=== PATIENT | female | born 1990 | race Caucasian/White ===

== ENCOUNTER 2019-07-20 07:57 | Emergency (ER) | payer SELFPAY ==
[2019-07-20] MEDS ORDERED: HYDROCODONE/ACETAMINOPHEN 5-325 MG TABLET PO ONE (08:43)
[2019-07-20] MEDS ORDERED: IBUPROFEN 800 MG TABLET PO ONE (08:43)
[2019-07-20] MEDS ORDERED: PREDNISONE 20 MG TABLET PO ONE (08:43)
--- NOTE | 2019-07-20 08:47 | ER Document Report ---
ED ENT - General Chief Complaint: Sore Throat Stated Complaint: SORE THROAT, EAR PAIN Time Seen by Provider: 07/20/19 08:16 Mode of Arrival: Ambulatory Information source: Patient Notes: This 29-year-old female patient comes emergency room complaining of severe pain in her left throat going up into the ear that started yesterday. She woke up this morning and it was much worse. It is very painful to try to swallow saliva. There is no history of fever, nasal congestion, cough, nausea or vomiting. TRAVEL OUTSIDE OF THE [place] IN LAST 30 DAYS: No - Related Data Allergies/Adverse Reactions: No Known Allergies Allergy (Verified 10/11/14 13:31) Past Medical History - General Information source: Patient - Social History Smoking Status: Current Every Day Smoker Cigarette use (# per day): Yes - 1/2 pack/day Chew tobacco use (# tins/day): No Smoking Education Provided: No Frequency of alcohol use: None Drug Abuse: None Occupation: Unemployed Family History: Reviewed & Not Pertinent Patient has suicidal ideation: No Patient has homicidal ideation: No - Medical History Medical History: Negative Past Surgical History: Reports: Hx Appendectomy - Immunizations Hx Diphtheria, Pertussis, Tetanus Vaccination: Yes Review of Systems - Review of Systems Constitutional: No symptoms reported EENT: See HPI Cardiovascular: No symptoms reported Respiratory: No symptoms reported Gastrointestinal: No symptoms reported Genitourinary: No symptoms reported Musculoskeletal: No symptoms reported Skin: No symptoms reported Hematologic/Lymphatic: No symptoms reported Neurological/Psychological: No symptoms reported Physical Exam - Vital signs Vitals: Temp Pulse Resp BP Pulse Ox 98.6 F 97 18 111/69 97 07/20/19 08:01 07/20/19 08:01 07/20/19 08:01 07/20/19 08:01 07/20/19 08:01 - General General appearance: Appears well, Alert In distress: None - HEENT Head: Normocephalic, Atraumatic Eyes: Normal Pupils: PERRL Nasal: Normal Pharynx: Erythema - There is some erythema to the posterior pharyngeal pillar region that appears viral.. No: Exudate, Tonsillar hypertrophy, Uvular edema Neck: Lymphadenopathy - There is some slightly tender palpable left anterior cervical nodes, Supple - Respiratory Respiratory status: No respiratory distress Breath sounds: Normal - Cardiovascular Rhythm: Regular Heart sounds: Normal auscultation Murmur: No - Abdominal Inspection: Normal Tenderness: Nontender - Back Back: Normal - Extremities General upper extremity: Normal inspection General lower extremity: Normal inspection - Neurological Neuro grossly intact: Yes - Psychological Associated symptoms: Normal affect, Normal mood - Skin Skin Temperature: Warm Skin Moisture: Dry Skin Color: Normal Course - Re-evaluation Re-evalutation: 07/20/19 09:29 Rapid strep is negative - Vital Signs Vital signs: Temp Pulse Resp BP Pulse Ox 98.6 F 97 18 111/69 97 07/20/19 08:01 07/20/19 08:01 07/20/19 08:01 07/20/19 08:01 07/20/19 08:01 Discharge - Discharge Clinical Impression: Viral syndrome Pharyngitis Qualifiers: Pharyngitis/tonsillitis etiology: unspecified etiology Qualified Code(s): J02.9 - Acute pharyngitis, unspecified Condition: Stable Disposition: HOME, SELF-CARE Additional Instructions: Viral Syndrome The physician has diagnosed a viral infection. Viruses not only cause "colds," but can cause many different symptoms including generalized aching, fever, headache, cough, diarrhea, nausea, vomiting, and fatigue. The treatment, for the most part, is simply relief of symptoms. This means that antibiotics are usually not given. Rest, fluids, pain medications and, occasionally, medication for the specific symptoms that are most bothersome will be prescribed. Use good handwashing to avoid passing the virus to others. Shared toys should be cleaned with disinfectant. Clean the toilets, sinks, and counter surfaces in bathrooms. Launder clothing in hot water. Contact the physician if you develop any new or unusual symptoms such as severe headache, stiff neck, high fever, chest pain, productive cough, or shortness of breath. You should be rechecked if you don't see marked improvement within seven to 10 days. Sore Throat Sore throats may be caused by viruses, bacteria, or fungi. Most are due to a virus, and must get better on their own. Bacterial sore throats, particularly those due to "strep," need treatment with antibiotics. If an antibiotic is prescribed, be sure to take the medication for a full 10 days. Failure to take the antibiotic can result in complications such as rheumatic fever. Sometimes, an injection of antibiotics is given instead of pills or liquid. This single "shot" is equal in effectiveness to the oral medication. To relieve symptoms, take acetaminophen for pain. Sip clear liquids frequently, or eat popsicles or ice chips. Anesthetic sprays or lozenges may help. Make sure the air in the room is not too dry. Avoid using decongestants or antihistamines. Call the doctor if there is no improvement in two days, or if you have difficulty breathing, increasing throat pain, high fever, rash, or frequent vomiting. Drink plenty of fluids and get plenty of rest. Take 2 extra strength Tylenol every 4 hours and Motrin 600 mg every 6 hours. Start taking the prednisone tomorrow, you have had today's dose here in the emergency room. Follow-up with a local primary care provider if not improving over the next few days. RETURN TO THE EMERGENCY ROOM IF ANY NEW OR WORSENING SYMPTOMS. Prescriptions: Prednisone [Deltasone 10 mg Tablet] 10 mg PO ASDIR PRN #15 tablet PRN Reason:
[2019-07-20] MEDS ORDERED: HYDROCODONE/ACETAMINOPHEN 5-325 MG (6 TAB/ER DISP) PO PRN (09:35)
[2019-07-20 09:55] VITALS: BP 115/72
== END 2019-07-20 09:43 | disposition home or self-care (01) ==
LOC: ER 07:57
DX: B34.9 Viral infection, unspecified (principal); J02.9 Acute pharyngitis, unspecified; F17.210 Nicotine dependence, cigarettes, uncomplicated
CPT/HCPCS: 99282; 87070; 87880; 87077; J7512

== ENCOUNTER 2020-02-26 20:53 | Emergency (ER) | payer SELFPAY ==
--- NOTE | 2020-02-26 23:16 | RADIOLOGY REPORT (SQ) ---
EXAM DESCRIPTION: XR FOOT 3 OR MORE VIEWS, XR ANKLE 3 OR MORE VIEWS COMPLETED DATE/TME: 02/26/2020 22:39 CLINICAL HISTORY: fall COMPARISON: None FINDINGS: Three x-ray views of the left ankle and foot were submitted. There is an acute nondisplaced transverse fracture at the base of the fifth metatarsal bone, Harrison fracture. Bone mineralization is within normal limits. There is no radiopaque foreign body material. IMPRESSION: Acute nondisplaced fracture at the base of the fifth metatarsal bone.
[2020-02-26] MEDS ORDERED: HYDROCODONE/ACETAMINOPHEN 5-325 MG TABLET PO ONE (23:57)
--- NOTE | 2020-02-26 23:59 | ER Document Report ---
ED Extremity Problem, Lower - General Chief Complaint: Foot Injury Stated Complaint: POSSIBLE BROKEN LEFT FOOT Mode of Arrival: Wheelchair Information source: Patient Notes: Patient is a 29-year-old female comes emergency room complaining of left foot pain. Patient states that she went to get her dog there was barking and nearly fight with her neighbors dog picked him up and he was squirming as she was walking up the steps and she did she lost her balance and fell forward and complaining of left foot pain. This occurred around 5 PM this evening. Patient states she is been hardly able to bear any weight on that foot. She had tennis shoes on and fell forward with the dog in her arms. She was going approximately 6 steps to her medial wound when this occurred. She denies any other injuries only the foot and ankle area appeared to be painful. TRAVEL OUTSIDE OF THE [place] IN LAST 30 DAYS: No - HPI Patient complains to provider of: Injury, Pain, Swelling Location: Ankle, Foot Occurred: This evening Where: Home Onset/Duration: Sudden Quality of pain: Stabbing, Throbbing Severity: Moderate Pain Level: 4 Context: Wearing shoes Recent injury: Yes Associated symptoms: Unable to bear weight Exacerbated by: Movement, Walking Relieved by: Elevation, Ice, Rest - Related Data Allergies/Adverse Reactions: No Known Allergies Allergy (Verified 10/11/14 13:31) Past Medical History - General Information source: Patient - Social History Smoking Status: Current Every Day Smoker Cigarette use (# per day): Yes - Half pack a day Chew tobacco use (# tins/day): No Smoking Education Provided: Yes Frequency of alcohol use: None Drug Abuse: None Family History: Reviewed & Not Pertinent Patient has homicidal ideation: No - Past Medical History Cardiac Medical History: Reports: None Past Surgical History: Reports: Hx Appendectomy - Immunizations Hx Diphtheria, Pertussis, Tetanus Vaccination: Yes Review of Systems - Review of Systems Constitutional: No symptoms reported EENT: No symptoms reported Cardiovascular: No symptoms reported Respiratory: No symptoms reported Gastrointestinal: No symptoms reported Genitourinary: No symptoms reported Female Genitourinary: No symptoms reported Musculoskeletal: No symptoms reported, See HPI, Joint pain Skin: See HPI Hematologic/Lymphatic: No symptoms reported Neurological/Psychological: No symptoms reported -: Yes All other systems reviewed and negative Physical Exam - Vital signs Vitals: Temp Pulse Resp BP Pulse Ox 98.6 F 80 16 135/78 H 99 02/26/20 21:01 02/26/20 21:01 02/26/20 21:01 02/26/20 21:01 02/26/20 21:01 Interpretation: Hypertensive - Notes Notes: PHYSICAL EXAMINATION: GENERAL: Patient is a well-nourished well-developed 29-year-old female was in no apparent distress on physical exam but appears to be somewhat uncomfortable. HEAD: Atraumatic, normocephalic. EYES: Pupils equal round and reactive to light, extraocular movements intact, conjunctiva are normal. ENT: Nares patent, oropharynx clear without exudates. Moist mucous membranes. NECK: Normal range of motion, supple without lymphadenopathy LUNGS: Breath sounds clear to auscultation bilaterally and equal. No wheezes rales or rhonchi. HEART: Regular rate and rhythm without murmurs Musculoskeletal: Examination patient's area of concern is her left foot. Comparison with her right foot there is notable swelling on the dorsum of the left foot primarily around the left lateral side around the fifth metatarsal area. Moderate tenderness to palpation of the area as well. Patient has decre ased flexion with the ankle secondary to pain and discomfort. She has good dorsalis pedal pulse and good posterior tibial pulses. She has good cap refill in the nailbeds of the toes on that foot. There is just a slight discoloration of ecchymosis on the left lateral metatarsal area NEUROLOGICAL:. Normal speech, normal gait. Normal sensory, PSYCH: Normal mood, normal affect. SKIN: Warm, Dry, normal turgor, no rashes or lesions noted. Course - Re-evaluation Re-evalutation: 02/27/20 00:08 Patient was found to have a nondisplaced proximal metacarpal fracture on the left foot. We placed her in a postop shoe and given her the orthopedist operations research analyst. She sees a walk-in clinic in a local town who she wants to follow-up with but she is understands that she needs follow-up and a repeat x-ray as well. She has been instructed to be nonweightbearing until such time she is to see his orthopedist or her primary care provider. - Vital Signs Vital signs: Temp Pulse Resp BP Pulse Ox 97.8 F 80 16 135/78 H 99 02/26/20 22:29 02/26/20 21:01 02/26/20 21:01 02/26/20 21:01 02/26/20 21:01 Procedures - Immobilization Left Foot Time completed: 00:09 Pre-Proc Neuro Vasc Exam: Normal Immobilizer type: Post-op shoe Performed by: ZAKI Post-Proc Neuro Vasc Exam: Normal Alignment checked and good: Yes Discharge - Discharge Clinical Impression: Nondisplaced fracture of fifth metatarsal bone of left foot Qualifiers: Encounter type: initial encounter Fracture type: closed Qualified Code(s): S92.355A - Nondisplaced fracture of fifth metatarsal bone, left foot, initial encounter for closed fracture Condition: Stable Disposition: HOME, SELF-CARE Instructions: Foot Fracture ([facility]) Additional Instructions: Foot Fracture You have a fracture in one of the small bones of the foot. Some foot fractures are very serious, while others are no more serious than a sprain. This fracture should heal well, but requires protection for proper healing. Initially, you should elevate and ice pack the foot, and bear no weight on it. Usually, a cast or a walking boot will be required. Some milder foot fractures can be managed with temporary rest, then a firm shoe. Your physician has determined the seriousness of your foot fracture and has outlined the treatment plan for you. You should follow up as instructed to insure that the fracture heals without complications. Call the doctor or return at once if pain or swelling becomes severe, if a re-injury occurs, or if any part of the foot becomes numb. As we have discussed and you have a nondisplaced fracture of the proximal end of your fifth metatarsal. As we have discussed you will need to have this followed up to make sure that it is healing appropriately. So into you can find an orthopedist or your primary care provider to re-x-ray it in a week or 2 you need to be nonweightbearing. The more you tend to walk on it the worse it can become. I am giving you something for pain for the next couple of days however the nonweightbearing ice and elevation of your fuller although should you have any concerns or problems or if the pain increases return to ER for recheck. I am given you the name of the orthopedic physician on-call [facility] for the emergency room and contact his office to see if he can accommodate you. Prescriptions: Hydrocodone/Acetaminophen [[place] 5-325 Tablet] 1 each PO Q4 PRN #12 tablet PRN Reason: Forms: Elevated Blood Pressure, Smoking Cessation Education Referrals: CLAUDETTE MIMS JR, DO [ACTIVE PROVISIONAL STAFF] - Follow up as needed
[2020-02-27 00:27] VITALS: BP 131/75
== END 2020-02-27 00:30 | disposition home or self-care (01) ==
LOC: ER 20:53
DX: S92.355A Nondisplaced fracture of fifth metatarsal bone, left foot, initial encounter for closed fracture (principal); M79.672 Pain in left foot; M79.89 Other specified soft tissue disorders; W10.9XXA Fall (on) (from) unspecified stairs and steps, initial encounter; F17.210 Nicotine dependence, cigarettes, uncomplicated
CPT/HCPCS: 99283